=== PATIENT | female | born 1975 | race Caucasian/White ===

== ENCOUNTER 2018-08-18 15:55 | Inpatient (IN) | payer BC ==
[2018-08-18] MEDS ORDERED: Sodium Chloride 0.9% 10 ML Syringe FLUSH PRN (16:14)
[2018-08-18] MEDS ORDERED: EPINEPHrine 1:10,000 1 MG/10 ML Syringe IVPUSH PRN (16:20)
[2018-08-18] MEDS ORDERED: Nitroglycerin 0.4 MG Tab.SL SL PRN (16:20)
[2018-08-18] MEDS ORDERED: Lidocaine 2% 100 MG/5 ML Syringe IVPUSH PRN (16:20)
[2018-08-18] MEDS ORDERED: Atropine 0.1 MG/ML 10 ML Syringe IVPUSH PRN (16:20)
[2018-08-18] MEDS: Sodium Chloride 0.9% 1,000 ML IV SCH (17:05)
[2018-08-18] MEDS ORDERED: Albuterol 0.083% 2.5 MG/3 ML Neb Soln INH PRN (17:17)
[2018-08-18] MEDS: Ticagrelor 90 MG Tab PO SCH (21:11)
[2018-08-19] MEDS: Sodium Chloride 0.9% 1,000 ML IV SCH ×3 (03:16→22:59)
[2018-08-19] MEDS ORDERED: Levothyroxine 25 MCG Tab PO SCH (07:30)
[2018-08-19] MEDS: Levothyroxine 112 MCG Tab PO SCH (07:58)
[2018-08-19 08:00] LABS: CHLORIDE,CL 111 mmol/L (98-115)
[2018-08-19 08:05] LABS: ANION GAP 14.3 mmol/L (5-15); SODIUM,NA 145 mmol/L (136-145)
[2018-08-19] MEDS ORDERED: LEVOTHYROXINE 137 MCG PO SCH (09:00)
[2018-08-19] MEDS ORDERED: metFORMIN 500 MG Tab PO SCH (09:00)
[2018-08-19] MEDS: Aspirin 325 MG Tab.EC PO SCH (09:58)
[2018-08-19] MEDS: Ticagrelor 90 MG Tab PO SCH ×2 (09:58→21:13)
[2018-08-19] MEDS: Magnesium Oxide 500 MG Tab PO SCH (09:59)
[2018-08-19] MEDS: Liraglutide (rDNA Origin) 0.6 MG/0.1 ML 3 ML Pen SUBCUT SCH (10:00)
[2018-08-19] MEDS: Venlafaxine 37.5 MG Cap.ER PO SCH (10:37)
[2018-08-19] MEDS: Venlafaxine 150 MG Cap.ER PO SCH (10:37)
--- NOTE | 2018-08-19 11:56 | PCM.PN ---
- General Info Date of Service: 08/19/18 Subjective Update: Ms. Kirkpatrick reports some improvement today in generalized weakness, lightheadedness, and fatigue. Endorses that these symptoms have been progressive over the past few months. She does not check home BPs and has not made any adjustments to her antihypertensive medications over this course. She has a significant cardiac history with hx CABG and stents without cardiology follow-up since 2016. She also endorses an unintentional weight loss of 25 pounds over the past 18months and has been having intermittent baseline, mildly worsened from her baseline. She continues to smoke 1/2-3/4ppd of cigarettes. Has been able to successfully quit in the past, and is currently unsure if she wants to quit entirely due to increased stress in her life. Main stressors are having started a new job and having an "up and down" relationship with her two children. She denies any new symptoms, including notably denying any vertigo, vision changes, chest pain, palpitations, shortness of breath, or abdominal pain. - Patient Data Vitals - Most Recent: Last Vital Signs Temp 36.2 C 08/19/18 11:00 Pulse 97 08/19/18 11:00 Resp 16 08/19/18 11:00 BP 88/50 L 08/19/18 11:00 Pulse Ox 98 08/19/18 11:00 Weight - Most Recent: 68.765 kg I&O - Last 24 Hours: Intake & Output 08/18/18 08/19/18 08/19/18 22:59 06:59 14:59 Intake Total 663 925 Output Total 900 600 Balance -237 325 Lab Results Last 24 Hours: Laboratory Results - last 24 hr 08/18/18 08/18/18 08/18/18 Range/Units 16:40 16:40 16:40 WBC (5.00-10.00) 10^3/uL RBC (3.80-5.50) 10^6/uL Hgb (12.0-16.0) g/dL Hct (37.0-47.0) % MCV (82.0-92.0) fL MCH (27.0-31.0) pg MCHC (32.0-36.0) g/dL RDW (11.5-14.5) % Plt Count (150-400) 10^3/uL MPV (7.4-10.4) fL Immature Gran % (Auto) (0.0-5.0) % Neut % (Auto) (50.0-70.0) % Lymph % (Auto) (20.0-40.0) % [place] % (Auto) (2.0-8.0) % Eos % (Auto) (1.0-3.0) % Baso % (Auto) (0.0-1.0) % Immature Gran # (Auto) (0.00-0.50) 10^3/uL Neut # (Auto) (2.50-7.00) 10^3/uL Lymph # (Auto) (1.00-4.00) 10^3/uL [place] # (Auto) (0.10-0.80) 10^3/uL Eos # (Auto) (0.10-0.30) 10^3/uL Baso # (Auto) (0.00-0.10) 10^3/uL ESR 20 (0-20) mm/hr Sodium (136-145) mmol/L Potassium (3.3-5.3) mmol/L Chloride (98-115) mmol/L Carbon Dioxide (21.0-32.0) mmol/L Anion Gap (5-15) mmol/L BUN (6-25) mg/dL Creatinine (0.51-1.17) mg/dL Est Cr Clr Drug Dosing mL/min Estimated GFR (MDRD) mL/min Glucose (75 - 99) mg/dL POC Glucose (74-106) mg/dl Lactic Acid (0.4-2.0) mmol/L Calcium (8.7-10.3) mg/dL Magnesium (1.8-2.4) mg/dL Total Bilirubin (0.2-1.0) mg/dL AST (15-37) U/L ALT (12-78) U/L Alkaline Phosphatase (46-116) IU/L Troponin I 0.05 (0.00-0.070) ng/mL C-Reactive Protein 0.2 (0.0-0.9) mg/dL Total Protein (6.4-8.2) g/dL Albumin (3.00-4.80) g/dL TSH, Ultra Sensitive 0.080 L (0.340-4.820) uIU/mL 08/18/18 08/18/18 08/19/18 Range/Units 17:32 20:11 06:38 WBC (5.00-10.00) 10^3/uL RBC (3.80-5.50) 10^6/uL Hgb (12.0-16.0) g/dL Hct (37.0-47.0) % MCV (82.0-92.0) fL MCH (27.0-31.0) pg MCHC (32.0-36.0) g/dL RDW (11.5-14.5) % Plt Count (150-400) 10^3/uL MPV (7.4-10.4) fL Immature Gran % (Auto) (0.0-5.0) % Neut % (Auto) (50.0-70.0) % Lymph % (Auto) (20.0-40.0) % [place] % (Auto) (2.0-8.0) % Eos % (Auto) (1.0-3.0) % Baso % (Auto) (0.0-1.0) % Immature Gran # (Auto) (0.00-0.50) 10^3/uL Neut # (Auto) (2.50-7.00) 10^3/uL Lymph # (Auto) (1.00-4.00) 10^3/uL [place] # (Auto) (0.10-0.80) 10^3/uL Eos # (Auto) (0.10-0.30) 10^3/uL Baso # (Auto) (0.00-0.10) 10^3/uL ESR (0-20) mm/hr Sodium (136-145) mmol/L Potassium (3.3-5.3) mmol/L Chloride (98-115) mmol/L Carbon Dioxide (21.0-32.0) mmol/L Anion Gap (5-15) mmol/L BUN (6-25) mg/dL Creatinine (0.51-1.17) mg/dL Est Cr Clr Drug Dosing mL/min Estimated GFR (MDRD) mL/min Glucose (75 - 99) mg/dL POC Glucose 154 H 163 H 121 H (74-106) mg/dl Lactic Acid (0.4-2.0) mmol/L Calcium (8.7-10.3) mg/dL Magnesium (1.8-2.4) mg/dL Total Bilirubin (0.2-1.0) mg/dL AST (15-37) U/L ALT (12-78) U/L Alkaline Phosphatase (46-116) IU/L Troponin I (0.00-0.070) ng/mL C-Reactive Protein (0.0-0.9) mg/dL Total Protein (6.4-8.2) g/dL Albumin (3.00-4.80) g/dL TSH, Ultra Sensitive (0.340-4.820) uIU/mL 08/19/18 08/19/18 08/19/18 Range/Units 07:20 07:20 07:20 WBC 7.41 (5.00-10.00) 10^3/uL RBC 4.09 (3.80-5.50) 10^6/uL Hgb 12.1 (12.0-16.0) g/dL Hct 34.8 L (37.0-47.0) % MCV 85.1 D (82.0-92.0) fL MCH 29.6 (27.0-31.0) pg MCHC 34.8 (32.0-36.0) g/dL RDW 14.6 H (11.5-14.5) % Plt Count 308 (150-400) 10^3/uL MPV 9.4 (7.4-10.4) fL Immature Gran % (Auto) 0.3 (0.0-5.0) % Neut % (Auto) 44.0 L (50.0-70.0) % Lymph % (Auto) 41.8 H (20.0-40.0) % [place] % (Auto) 9.2 H (2.0-8.0) % Eos % (Auto) 4.2 H (1.0-3.0) % Baso % (Auto) 0.5 (0.0-1.0) % Immature Gran # (Auto) 0.02 (0.00-0.50) 10^3/uL Neut # (Auto) 3.26 (2.50-7.00) 10^3/uL Lymph # (Auto) 3.10 (1.00-4.00) 10^3/uL [place] # (Auto) 0.68 (0.10-0.80) 10^3/uL Eos # (Auto) 0.31 H (0.10-0.30) 10^3/uL Baso # (Auto) 0.04 (0.00-0.10) 10^3/uL ESR (0-20) mm/hr Sodium 145 (136-145) mmol/L Potassium 3.6 (3.3-5.3) mmol/L Chloride 111 (98-115) mmol/L Carbon Dioxide 23.3 (21.0-32.0) mmol/L Anion Gap 14.3 (5-15) mmol/L BUN 7 (6-25) mg/dL Creatinine 0.66 (0.51-1.17) mg/dL Est Cr Clr Drug Dosing 92.95 mL/min Estimated GFR (MDRD) > 60 mL/min Glucose 119 H (75 - 99) mg/dL POC Glucose (74-106) mg/dl Lactic Acid 1.0 (0.4-2.0) mmol/L Calcium 8.7 (8.7-10.3) mg/dL Magnesium 1.4 L (1.8-2.4) mg/dL Total Bilirubin 0.3 (0.2-1.0) mg/dL AST 14 L (15-37) U/L ALT 13 (12-78) U/L Alkaline Phosphatase 71 (46-116) IU/L Troponin I (0.00-0.070) ng/mL C-Reactive Protein (0.0-0.9) mg/dL Total Protein 6.1 L (6.4-8.2) g/dL Albumin 2.99 L (3.00-4.80) g/dL TSH, Ultra Sensitive (0.340-4.820) uIU/mL Med Orders - Current: Current Medications Albuterol (Proventil Neb Soln) 2.5 mg INH QID PRN PRN Reason: Dyspnea Aspirin (Ecotrin) 325 mg PO DAILY [facility] Last Admin: 08/19/18 09:58 Dose: 325 mg Atropine Sulfate (Atropine 0.1 Mg/Ml) 0 mg IVPUSH ASDIRECTED PRN PRN Reason: Heart Epinephrine HCl (Epinephrine 1:10,000) 1 mg IVPUSH ASDIRECTED PRN PRN Reason: Heart Sodium Chloride (Normal Saline) 1,000 mls @ 100 mls/hr IV ASDIRECTED [facility] Last Admin: 08/19/18 03:16 Dose: 100 mls/hr Levothyroxine Sodium (Levothyroxine) 112 mcg PO ACBREAKFAST [facility] Last Admin: 08/19/18 07:58 Dose: 112 mcg Lidocaine HCl (Xylocaine 2%) 0 mg IVPUSH ASDIRECTED PRN PRN Reason: Heart Liraglutide (Victoza) 1.2 mg SUBCUT DAILY [facility] Last Admin: 08/19/18 10:00 Dose: 1.2 mg Magnesium Oxide (Magnesium Oxide) 500 mg PO DAILY [facility] Last Admin: 08/19/18 09:59 Dose: 500 mg Nitroglycerin (Nitrostat) 0.4 mg SL ASDIRECTED PRN PRN Reason: Heart Non-Formulary Medication (Budesonide [Entocort Ec]) 3 - 9 mg PO DAILY PRN PRN Reason: Diarrhea Sodium Chloride (Saline Flush) 10 ml FLUSH Q8HR PRN PRN Reason: keep vein open Ticagrelor (Brilinta) 90 mg PO BID [facility] Venlafaxine HCl (Effexor Xr) 37.5 mg PO DAILY [facility] Last Admin: 08/19/18 10:37 Dose: 37.5 mg Venlafaxine HCl (Effexor Xr) 150 mg PO DAILY [facility] Last Admin: 08/19/18 10:37 Dose: 150 mg Discontinued Medications Levothyroxine Sodium (Levothyroxine) 25 mcg PO ACBREAKFAST [facility] Metformin HCl (Glucophage) 2,000 mg PO DAILY [facility] Non-Formulary Medication (Levothyroxine) 137 mcg PO DAILY [facility] Ticagrelor (Brilinta) 90 mg PO BID [facility] Last Admin: 08/19/18 09:58 Dose: 90 mg - Exam Physical Findings Comments:: GENERAL: Adult white female appearing older than stated age sitting in hospital bed in no acute distress. HEENT: Normocephalic, atraumatic. Conjunctiva clear. Nares patent without discharge. Mucous membranes moist, posterior pharynx unremarkable. NECK: Supple, no masses. CV: Regular rate and rhythm, no murmurs, rubs, or gallops. 2+ radial pulses. PULMONARY: Normal effort, clear to auscultation bilaterally, no wheezes, rales, or rhonchi. ABDOMEN: Positive bowel sounds, soft, nontender, nondistended. EXTREMITIES: No edema, cyanosis, or clubbing. MUSCULOSKELETAL: Moves all extremities well. NEUROLOGICAL: No obvious deficits. DERMATOLOGIC: No rashes or suspicious lesions in exposed areas. PSYCHIATRIC: Alert, interactive, mildly anxious and guarded affect. - Problem List Review Problem List Initiated/Reviewed/Updated: Yes - My Orders Last 24 Hours: My Active Orders 08/18/18 16:20 Atropine [Atropine 0.1 MG/ML] 0 mg IVPUSH ASDIRECTED PRN EPINEPHrine [EPINEPHrine 1:10,000] 1 mg IVPUSH ASDIRECTED PRN Lidocaine 2% [Xylocaine 2%] 0 mg IVPUSH ASDIRECTED PRN Nitroglycerin [Nitrostat] 0.4 mg SL ASDIRECTED PRN 08/18/18 23:00 Vital Signs [RC] Q4H 08/18/18 23:30 Weight Daily [Height and Weight] [RC] 0700 08/19/18 11:46 DRUG SCREEN, URINE [URCHEM] Routine UA RFX MELANIA AND CULT IF INDIC [URIN] Routine 08/19/18 11:48 Budesonide [Entocort EC] 3 - 9 mg PO DAILY PRN 08/19/18 21:00 Ticagrelor [Brilinta] 90 mg PO BID atorvaSTATin [Lipitor] 40 mg PO BEDTIME 08/20/18 05:11 BASIC METABOLIC PANEL,BMP [CHEM] AM CBC WITH AUTO DIFF [HEME] AM MAGNESIUM [CHEM] AM 08/20/18 18:00 Magnesium Oxide 500 mg PO DAILY ONE - Plan Plan:: HPI summary: 43yoF with history notable for CAD s/p CABG, angioplasty, and stenting in the past, HTN, and DMT2 who presented to [facility] on 08/18/18 complaining of progressive weakness, lightheadedness, and fatigue. She also notably has had a weight loss of 25# over the past 18mos. BP was 75/48 and had symptomatic orthostasis for which she was admitted for close monitoring, further work-up, and medication adjustments. Hospital course: Labs notable for TSH 0.08 and magnesium 1.4 with otherwise unremarkable CBC, CMP , lactic acid, and troponin. Noted improvement in BPs with IVF and holding of antihypertensives, though first time holding was on the morning of the second hospitalization day as she took on the day of admission. No evidence of infection or other abnormalities. Etiology likely iatrogenic hypotension and hyperthyroidism and too tight management of DMT2. Hospitalization problems: # Hypotension # Iatrogenic hyperthyroidism: TSH 0.08. Prior levothyroxine dose 137mcg. # Recent weight loss # Hypoalbuminemia # Hypomagnesemia - Hold amlodipine, lisinopril, and isosorbide - Restart metoprolol tartrate at half dose of 25mg BID - Decrease levothyroxine to 112mcg - Increase magnesium to 500mg twice daily - Obtain UA and urine toxicology - Recheck CBC, BMP, and Mg in AM # DMT2: A1c 6. - Continue holding metformin while inpatient - Decrease liraglutide to 0.6mg # Tobacco dependence: Precontemplative stage of change. Stressed critical importance of cessation. She declines need for nicotine replacement during hospitalization. Chronic, stable conditions: # CAD: No evidence of acute ischemia. Continue DAPT with Brillinta and ASA 325mg as well as nitro prn chest pain. Recommend upcoming follow-up with cardiology, given last appointment was in 2015. # HLD: Last lipid panel 09/2017. Continue high dose statin. # Hx Budd-Chiari syndrome: S/p venoplasty. No recurrent concerns. # Hx collagenous colitis: Prior work-up at [facility], per patient report. Continue budesonide prn. # Neuropathic pain: Stable. Holding gabapentin in setting of hypotension and dizziness. # TIARRA and major recurrent depression: Active. Continue venlafaxine. Recommend referral to behavioral health counseling and consideration of medication changes in the future. # Scalp psoriasis: Continue flucinonide three times weekly. Hospitalization details: # FEN: NS at 100cc/hr. Electrolytes normal. Heart healthy diet. # PPX: Ambulate often for DVT prophylaxis; she is already on DAPT at baseline. # Code status: FULL. # Emergency contact: Significant other, who was updated at bedside on rounds. # Disposition: Continue on inpatient status. Anticipate discharge to home as early as tomorrow pending ongoing clinical improvement.
[2018-08-19] MEDS ORDERED: atorvaSTATin 40 MG Tab PO SCH (21:00)
[2018-08-19] MEDS: Metoprolol Tartrate 25 MG Tab PO SCH (22:11)
[2018-08-20] MEDS: Levothyroxine 112 MCG Tab PO SCH (06:32)
[2018-08-20 07:29] LABS: ANION GAP 13.7 mmol/L (5-15); CHLORIDE,CL 104 mmol/L (98-115); SODIUM,NA 141 mmol/L (136-145)
[2018-08-20] MEDS: Metoprolol Tartrate 25 MG Tab PO SCH (08:58)
[2018-08-20] MEDS: Magnesium Oxide 500 MG Tab PO SCH (08:58)
[2018-08-20] MEDS: Ticagrelor 90 MG Tab PO SCH (08:58)
[2018-08-20] MEDS: Aspirin 325 MG Tab.EC PO SCH (08:58)
[2018-08-20] MEDS: Liraglutide (rDNA Origin) 0.6 MG/0.1 ML 3 ML Pen SUBCUT SCH (08:59)
[2018-08-20] MEDS: Venlafaxine 37.5 MG Cap.ER PO SCH (08:59)
[2018-08-20] MEDS: Venlafaxine 150 MG Cap.ER PO SCH (08:59)
[2018-08-20 09:01] VITALS: BP 110/70
--- NOTE | 2018-08-20 11:57 | PCM.DCSUM1 ---
Discharge Summary - Hospital Course Free Text/Narrative:: Date of admission: 08/18/18 Date of discharge: 08/20/18 Admission diagnoses: # Essential hypertension with current hypotension, symptomatic # Weight loss # CAD # Hx Budd-Chiari syndrome # Hx collagenous colitis # DMT2 # Hypothyroidism # HLD # Neuropathic pain # TIARRA # Major recurrent depression # Tobacco dependence # Scalp psoriasis Discharge diagnoses: # Essential hypertension with current resolving hypotension # Weight loss # Hypothyroidism with current iatrogenic hyperthyroidism # DMT2 # Hypoalbuminemia # Hypomagnesemia # CAD # Hx Budd-Chiari syndrome # Hx collagenous colitis # HLD # Neuropathic pain # TIARRA # Major recurrent depression # Tobacco dependence # Scalp psoriasis Consultations: None Procedures: None Hospital course: 43yoF with history notable for CAD s/p CABG, angioplasty, and stenting in the past, HTN, DMT2, and hypothyroidism who presented to [facility] on 08/18/18 complaining of progressive weakness, lightheadedness, and fatigue. She also notably has had a weight loss of 25# over the past 18mos. BP was 75/48 and had symptomatic orthostasis for which she was admitted for close monitoring, further work-up, and medication adjustments. Labs notable for TSH 0.08, magnesium 1.4, and A1c 6% with otherwise unremarkable CBC, CMP, lactic acid, troponin., UA, and urine toxicology. EKG and telemetry unremarkable. Etiology of symptoms and hypotension likely iatrogenic hypotension and hyperthyroidism and too tight management of DMT2. Noted improvement in symptoms and BPs with IVF and holding of antihypertensives , isosorbide, and gabapentin. Metformin was also held, liraglutide dose reduced , and levothyroxine dose reduced. She was continued on other medications for chronic medical conditions. No evidence of other abnormalities arose during her stay and due to excellent clinical improvement throughout hospitalization, was deemed ready for discharge back to home. See following detailed problem based assessment and plan: # Essential hypertension with current resolving hypotension: Was on home metoprolol tartrate 50mg BID, amlodipine 5mg, and lisinopril 10mg. Improvement in hypotension with holding of medications and IVF. Restarted metoprolol tartrate 25mg BID with ongoing improved BPs from admission. # Weight loss: Likely related to iatrogenic hyperthyroidism, see below. Continue close monitoring. # Hypothyroidism with current iatrogenic hyperthyroidism: TSH 0.08. Prior levothyroxine dose 137mcg, which was reduced to 112mcg. # DMT2: A1c 6. Metformin held while inpatient. Was previously taking metformin 2000mg once daily, which was changed to 1000mg BID at discharge. Liraglutide was reduced in dose to 0.6mg. # Hypoalbuminemia: Mildly low at 2.99. # Hypomagnesemia: Mildly low at 1.4. Was on magnesium chloride 500mg once daily , which was increased to twice daily. # CAD: No evidence of acute ischemia. Continue DAPT with Brillinta and ASA 325mg as well as nitro prn chest pain. Recommend upcoming follow-up with cardiology, given last appointment was in 2015. # Hx Budd-Chiari syndrome: S/p venoplasty. No recurrent concerns. # Hx collagenous colitis: Prior work-up at [facility], per patient report. Continue budesonide prn. # HLD: Last lipid panel 09/2017. Continue high dose statin. # Neuropathic pain: Stable. Holding gabapentin in setting of hypotension and dizziness. # TIARRA / Major recurrent depression: Active. Continue venlafaxine. Recommend referral to behavioral health counseling and consideration of medication changes in the future. # Tobacco dependence: Precontemplative stage of change. Stressed critical importance of cessation. She declines need for nicotine replacement during hospitalization. # Scalp psoriasis: Continue flucinonide three times weekly. Discharge medication changes: - Discontinue amlodipine - Discontinue lisinopril - Decrease metoprolol tartrate to 25mg BID (from 50mg BID) - Decrease levothyroxine to 112mcg (from 137mcg) - Decrease liraglutide to 0.6mg daily (from 1.2mg daily) - Change metformin 1000mg BID (from 2000mg daily) - Increase magnesium to 500mg twice daily - Hold isosorbide, with plan to reinitiate at follow-up pending clinical status Other follow-up items: - Follow-up with provider at [facility] next week, with follow-up magnesium level - Schedule follow-up with cardiology - Highly consider referral to behavioral health counseling - Highly recommend tobacco cessation - Monitor weight - Monitor BGs to reassess need for ongoing use of liraglutide - Consider change in psychotropic medication regimen based on ongoing control of mood disorders - Next TSH in 6 weeks - Next A1c in 3 months - Discharge Data Discharge Date: 08/20/18 Discharge Disposition: Home, Self-Care 01 Condition: Good - Patient Instructions Diet: Heart Healthy Diet Activity: As Tolerated Driving: May Drive Today Showering/Bathing: May Shower Other/Special Instructions: Return for worsening symptoms, chest pain, or other concerns. - Discharge Plan *PRESCRIPTION DRUG MONITORING PROGRAM REVIEWED*: Yes *COPY OF PRESCRIPTION DRUG MONITORING REPORT IN PATIENT LUI: Yes Prescriptions/Med Rec: Levothyroxine 112 mcg PO ACBREAKFAST #60 tablet Metoprolol Tartrate [Lopressor] 25 mg PO BID #60 tablet Nitroglycerin [Nitrostat] 0.4 mg SL ASDIRECTED PRN #30 tab.subl PRN Reason: Chest Pain Home Medications: Home Meds Aspirin 325 mg PO DAILY 03/09/14 [History] Budesonide [Entocort EC] 6 mg PO DAILY PRN 04/02/18 [History] Rosuvastatin Calcium [Crestor] 40 mg PO DAILY 04/02/18 [History] Ticagrelor [Brilinta] 90 mg PO BID 04/02/18 [History] Venlafaxine HCl [Venlafaxine ER] 37.5 mg PO DAILY 04/02/18 [History] Venlafaxine HCl [Venlafaxine ER] 150 mg PO DAILY 04/02/18 [History] Albuterol [Proventil Neb Soln] 2.5 mg INH QID PRN 08/18/18 [History] Fluocinonide/Emollient [Lidex-E 0.05% Crm] 1 applic TOP ASDIRECTED 08/18/18 [ History] Gabapentin [Neurontin] 300 mg PO BID 08/19/18 [History] Levothyroxine 112 mcg PO ACBREAKFAST #60 tablet 08/20/18 [Rx] Liraglutide [Victoza] 0.6 mg SQ DAILY #3 08/20/18 [Rx] Magnesium Oxide 500 mg PO DAILY tablet 08/20/18 [Rx] Metoprolol Tartrate [Lopressor] 25 mg PO BID #60 tablet 08/20/18 [Rx] Nitroglycerin [Nitrostat] 0.4 mg SL ASDIRECTED PRN #30 tab.subl 08/20/18 [Rx] metFORMIN HCl [Metformin HCl ER] 1,000 mg PO BID #120 08/20/18 [Rx] Patient Handouts: Steps to Quit Smoking Referrals: Long,Shavon B, [employer] [Primary Care Provider] - (or other [facility] provider next week; call Wednesday to make appointment) - Discharge Summary/Plan Comment DC Time >30 min.: Yes - General Info Subjective Update: Ms. Kirkpatrick reports ongoing improvement today in generalized weakness, lightheadedness, and fatigue. Tolerating diet and ambulation well. Voiding and having soft BMs without difficulty. She denies any new symptoms, including notably denying any vertigo, vision changes, chest pain, palpitations, shortness of breath, or abdominal pain. - Patient Data Vitals - Most Recent: Last Vital Signs Temp 36.5 C 08/20/18 06:46 Pulse 95 08/20/18 08:58 Resp 20 08/20/18 06:46 BP 110/70 08/20/18 08:58 Pulse Ox 96 08/20/18 06:46 Weight - Most Recent: 70.08 kg I&O - Last 24 hours: Intake & Output 08/19/18 08/20/18 08/20/18 22:59 06:59 14:59 Intake Total 1120 1340 Output Total 500 1250 Balance 620 90 Lab Results - Last 24 hrs: Laboratory Results - last 24 hr 08/19/18 08/19/18 08/19/18 Range/Units 17:33 17:33 21:12 WBC (5.00-10.00) 10^3/uL RBC (3.80-5.50) 10^6/uL Hgb (12.0-16.0) g/dL Hct (37.0-47.0) % MCV (82.0-92.0) fL MCH (27.0-31.0) pg MCHC (32.0-36.0) g/dL RDW (11.5-14.5) % Plt Count (150-400) 10^3/uL MPV (7.4-10.4) fL Immature Gran % (Auto) (0.0-5.0) % Neut % (Auto) (50.0-70.0) % Lymph % (Auto) (20.0-40.0) % Dade % (Auto) (2.0-8.0) % Eos % (Auto) (1.0-3.0) % Baso % (Auto) (0.0-1.0) % Immature Gran # (Auto) (0.00-0.50) 10^3/uL Neut # (Auto) (2.50-7.00) 10^3/uL Lymph # (Auto) (1.00-4.00) 10^3/uL Dade # (Auto) (0.10-0.80) 10^3/uL Eos # (Auto) (0.10-0.30) 10^3/uL Baso # (Auto) (0.00-0.10) 10^3/uL WBC Morphology Comment Sodium (136-145) mmol/L Potassium (3.3-5.3) mmol/L Chloride (98-115) mmol/L Carbon Dioxide (21.0-32.0) mmol/L Anion Gap (5-15) mmol/L BUN (6-25) mg/dL Creatinine (0.51-1.17) mg/dL Est Cr Clr Drug Dosing mL/min Estimated GFR (MDRD) mL/min Glucose (75 - 99) mg/dL POC Glucose 110 H (74-106) mg/dl Calcium (8.7-10.3) mg/dL Magnesium (1.8-2.4) mg/dL Specimen Type Urine void Urine Color Yellow (YELLOW) Urine Appearance Slightly cloudy H (CLEAR) Urine pH 5.5 (5.0-9.0) Ur Specific [place] <= 1.005 (1.005-1.030) Urine Protein Negative (NEGATIVE) mg/dL Urine Glucose (UA) Negative (NEGATIVE) mg/dL Urine Ketones Negative (NEGATIVE) mg/dL Urine Occult Blood Negative (NEGATIVE) Urine Nitrite Negative (NEGATIVE) Urine Bilirubin Negative (NEGATIVE) Urine Urobilinogen 0.2 (0.2-1.0) E.U./dL Ur Leukocyte Esterase Negative (NEGATIVE) Urine Opiates Screen Negative (NEGATIVE) Ur Oxycodone Screen Negative (NEGATIVE) Urine Methadone Screen Negative (NEGATIVE) Ur Propoxyphene Screen Negative (NEGATIVE) Ur Barbiturates Screen Negative (NEGATIVE) Ur Tricyclics Screen Negative (NEGATIVE) Ur Phencyclidine Scrn Negative (NEGATIVE) Ur Amphetamine Screen Negative (NEGATIVE) U Methamphetamines Scrn Negative (NEGATIVE) U Benzodiazepines Scrn Negative (NEGATIVE) U Cocaine Metab Screen Negative (NEGATIVE) U Marijuana (THC) Screen Negative (NEGATIVE) 08/20/18 08/20/1819 Range/Units 06:20 06:46 06:46 WBC 6.66 (5.00-10.00) 10^3/uL RBC 4.22 (3.80-5.50) 10^6/uL Hgb 12.5 (12.0-16.0) g/dL Hct 35.8 L (37.0-47.0) % MCV 84.8 (82.0-92.0) fL MCH 29.6 (27.0-31.0) pg MCHC 34.9 (32.0-36.0) g/dL RDW 14.4 (11.5-14.5) % Plt Count 303 (150-400) 10^3/uL MPV 9.3 (7.4-10.4) fL Immature Gran % (Auto) 0.3 (0.0-5.0) % Neut % (Auto) 44.1 L (50.0-70.0) % Lymph % (Auto) 41.9 H (20.0-40.0) % Dade % (Auto) 8.6 H (2.0-8.0) % Eos % (Auto) 4.5 H (1.0-3.0) % Baso % (Auto) 0.6 (0.0-1.0) % Immature Gran # (Auto) 0.02 (0.00-0.50) 10^3/uL Neut # (Auto) 2.94 (2.50-7.00) 10^3/uL Lymph # (Auto) 2.79 (1.00-4.00) 10^3/uL Dade # (Auto) 0.57 (0.10-0.80) 10^3/uL Eos # (Auto) 0.30 (0.10-0.30) 10^3/uL Baso # (Auto) 0.04 (0.00-0.10) 10^3/uL WBC Morphology Comment See note Sodium 141 (136-145) mmol/L Potassium 3.5 (3.3-5.3) mmol/L Chloride 104 (98-115) mmol/L Carbon Dioxide 26.8 (21.0-32.0) mmol/L Anion Gap 13.7 (5-15) mmol/L BUN 4 L (6-25) mg/dL Creatinine 0.62 (0.51-1.17) mg/dL Est Cr Clr Drug Dosing 98.95 mL/min Estimated GFR (MDRD) > 60 mL/min Glucose 86 (75 - 99) mg/dL POC Glucose 92 (74-106) mg/dl Calcium 8.5 L (8.7-10.3) mg/dL Magnesium 1.1 L (1.8-2.4) mg/dL Specimen Type Urine Color (YELLOW) Urine Appearance (CLEAR) Urine pH (5.0-9.0) Ur Specific [place] (1.005-1.030) Urine Protein (NEGATIVE) mg/dL Urine Glucose (UA) (NEGATIVE) mg/dL Urine Ketones (NEGATIVE) mg/dL Urine Occult Blood (NEGATIVE) Urine Nitrite (NEGATIVE) Urine Bilirubin (NEGATIVE) Urine Urobilinogen (0.2-1.0) E.U./dL Ur Leukocyte Esterase (NEGATIVE) Urine Opiates Screen (NEGATIVE) Ur Oxycodone Screen (NEGATIVE) Urine Methadone Screen (NEGATIVE) Ur Propoxyphene Screen (NEGATIVE) Ur Barbiturates Screen (NEGATIVE) Ur Tricyclics Screen (NEGATIVE) Ur Phencyclidine Scrn (NEGATIVE) Ur Amphetamine Screen (NEGATIVE) U Methamphetamines Scrn (NEGATIVE) U Benzodiazepines Scrn (NEGATIVE) U Cocaine Metab Screen (NEGATIVE) U Marijuana (THC) Screen (NEGATIVE) Med Orders - Current: Current Medications Albuterol (Proventil Neb Soln) 2.5 mg INH QID PRN PRN Reason: Dyspnea Aspirin (Ecotrin) 325 mg PO DAILY [facility] Last Admin: 08/20/18 08:58 Dose: 325 mg Atorvastatin Calcium (Lipitor) 40 mg PO BEDTIME [facility] Last Admin: 08/19/18 21:13 Dose: 40 mg Atropine Sulfate (Atropine 0.1 Mg/Ml) 0 mg IVPUSH ASDIRECTED PRN PRN Reason: Heart Epinephrine HCl (Epinephrine 1:10,000) 1 mg IVPUSH ASDIRECTED PRN PRN Reason: Heart Sodium Chloride (Normal Saline) 1,000 mls @ 100 mls/hr IV ASDIRECTED [facility] Last Admin: 08/19/18 22:59 Dose: 100 mls/hr Levothyroxine Sodium (Levothyroxine) 112 mcg PO ACBREAKFAST [facility] Last Admin: 03/23/19 06:32 Dose: 112 mcg Lidocaine HCl (Xylocaine 2%) 0 mg IVPUSH ASDIRECTED PRN PRN Reason: Heart Liraglutide (Victoza) 1.2 mg SUBCUT DAILY [facility] Last Admin: 08/20/18 08:59 Dose: 1.2 mg Magnesium Oxide (Magnesium Oxide) 500 mg PO DAILY [facility] Last Admin: 08/20/18 08:58 Dose: 500 mg Magnesium Oxide (Magnesium Oxide) 500 mg PO DAILY ONE Stop: 08/20/18 18:01 Metoprolol Tartrate (Lopressor) 25 mg PO BID [facility] Last Admin: 08/20/18 08:58 Dose: 25 mg Nitroglycerin (Nitrostat) 0.4 mg SL ASDIRECTED PRN PRN Reason: Heart Budesonide Ec 3mg (Capsule) 2 each PO DAILY PRN PRN Reason: Diarrhea Sodium Chloride (Saline Flush) 10 ml FLUSH Q8HR PRN PRN Reason: keep vein open Ticagrelor (Brilinta) 90 mg PO BID [facility] Last Admin: 08/20/18 08:58 Dose: 90 mg Venlafaxine HCl (Effexor Xr) 37.5 mg PO DAILY [facility] Last Admin: 08/20/18 08:59 Dose: 37.5 mg Venlafaxine HCl (Effexor Xr) 150 mg PO DAILY [facility] Last Admin: 08/20/18 08:59 Dose: 150 mg Discontinued Medications Levothyroxine Sodium (Levothyroxine) 25 mcg PO ACBREAKFAST [facility] Metformin HCl (Glucophage) 2,000 mg PO DAILY [facility] Non-Formulary Medication (Levothyroxine) 137 mcg PO DAILY [facility] Ticagrelor (Brilinta) 90 mg PO BID [facility] Last Admin: 08/19/18 09:58 Dose: 90 mg - Exam Physical Findings Comments:: GENERAL: Adult white female appearing older than stated age sitting in hospital bed in no acute distress. HEENT: Normocephalic, atraumatic. Conjunctiva clear. Nares patent without discharge. Mucous membranes moist, posterior pharynx unremarkable. NECK: Supple, no masses. CV: Regular rate and rhythm, no murmurs, rubs, or gallops. 2+ radial pulses. PULMONARY: Normal effort, clear to auscultation bilaterally, no wheezes, rales, or rhonchi. ABDOMEN: Positive bowel sounds, soft, nontender, nondistended. EXTREMITIES: No edema, cyanosis, or clubbing. MUSCULOSKELETAL: Moves all extremities well. NEUROLOGICAL: No obvious deficits. DERMATOLOGIC: No rashes or suspicious lesions in exposed areas. PSYCHIATRIC: Alert, interactive,appropriate affect.
[2018-08-20] MEDS ORDERED: Magnesium Oxide 500 MG Tab PO ONE (18:00)
== END 2018-08-20 11:40 | disposition home or self-care (01) | DRG 207 ==
LOC: KA.MS 16:09
PROVIDERS: ADMIT Physician Assistant Medical; ATTEND Family Medicine
DX: I95.89 Other hypotension (principal); E05.80 Other thyrotoxicosis without thyrotoxic crisis or storm; I25.10 Atherosclerotic heart disease of native coronary artery without angina pectoris; I10 Essential (primary) hypertension; E03.9 Hypothyroidism, unspecified; F32.9 Major depressive disorder, single episode, unspecified; E78.5 Hyperlipidemia, unspecified; E66.9 Obesity, unspecified; F17.210 Nicotine dependence, cigarettes, uncomplicated; E88.09 Other disorders of plasma-protein metabolism, not elsewhere classified; E11.42 Type 2 diabetes mellitus with diabetic polyneuropathy; E83.42 Hypomagnesemia; L40.8 Other psoriasis; R63.4 Abnormal weight loss; I82.0 Budd-Chiari syndrome; F41.1 Generalized anxiety disorder; Z90.49 Acquired absence of other specified parts of digestive tract; Z90.710 Acquired absence of both cervix and uterus; Z95.1 Presence of aortocoronary bypass graft; Z95.5 Presence of coronary angioplasty implant and graft; Z88.1 Allergy status to other antibiotic agents; Z88.8 Allergy status to other drugs, medicaments and biological substances; Z68.25 Body mass index [BMI] 25.0-25.9, adult; I25.2 Old myocardial infarction
CPT/HCPCS: 36415; 80048; 80053; 80305-QW; 81003; 82962; 83605; 83735; 84443; 84484; 85025; 85651; 86140; A9270-GY; J3490; J7030

== ENCOUNTER 2018-09-04 21:37 | Emergency (ER) | payer BC ==
--- NOTE | 2018-09-04 21:59 | EDM.PDOC ---
ED HPI GENERAL MEDICAL PROBLEM - General Chief Complaint: General Stated Complaint: HEART FLUTTERING Time Seen by Provider: 09/04/18 21:48 Source of Information: Reports: Patient, Family History Limitations: Reports: No Limitations - History of Present Illness INITIAL COMMENTS - FREE TEXT/NARRATIVE: Noted fluttering chest after moving furniture. Was hospitalized 1 week ago for low blood pressure with significant adjustments (Mostly cessation) of BP meds and decrease in thyroid medication (Thyroxine) of some type and has completely quit the thyroid medication as not feeling well after the adjustment. was treated with "Augmentin" for a sinus infection which resulted in yeast infection and diarrhea with early cessation of the complete course due to resulting side affects. 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 Onset: Today Onset Date: 09/04/18 Onset Time: 19:00 Duration: Hour(s):, Constant Location: Reports: Chest Quality: Reports: Pressure Severity: Moderate Improves with: Reports: None Worsens with: Reports: None Context: Reports: Activity Associated Symptoms: Reports: Cough - Related Data Allergies Allergy/AdvReac Type Severity Reaction Status Date / Time ceftriaxone sodium Allergy Shortness Verified 09/04/18 22:04 [From Rocephin] of Breath codeine Allergy Stomach Verified 09/04/18 22:04 Upset erythromycin base Allergy Stomach Verified 09/04/18 22:04 Upset hydromorphone [From Dilaudid] Allergy Agitation Verified 09/04/18 22:04 Home Meds: Home Meds Aspirin 325 mg PO DAILY 03/09/14 [History] Budesonide [Entocort EC] 6 mg PO DAILY PRN 04/02/18 [History] Rosuvastatin Calcium [Crestor] 40 mg PO DAILY 04/02/18 [History] Ticagrelor [Brilinta] 90 mg PO BID 04/02/18 [History] Venlafaxine HCl [Venlafaxine ER] 37.5 mg PO DAILY 04/02/18 [History] Venlafaxine HCl [Venlafaxine ER] 150 mg PO DAILY 04/02/18 [History] Albuterol [Proventil Neb Soln] 2.5 mg INH QID PRN 08/18/18 [History] Fluocinonide/Emollient [Lidex-E 0.05% Crm] 1 applic TOP ASDIRECTED 08/18/18 [ History] Gabapentin [Neurontin] 300 mg PO BID 08/19/18 [History] Levothyroxine 112 mcg PO ACBREAKFAST #60 tablet 08/20/18 [Rx] Liraglutide [Victoza] 0.6 mg SQ DAILY #3 08/20/18 [Rx] Magnesium Oxide 500 mg PO DAILY tablet 08/20/18 [Rx] Metoprolol Tartrate [Lopressor] 25 mg PO BID #60 tablet 08/20/18 [Rx] Nitroglycerin [Nitrostat] 0.4 mg SL ASDIRECTED PRN #30 tab.subl 08/20/18 [Rx] metFORMIN HCl [Metformin HCl ER] 1,000 mg PO BID #120 08/20/18 [Rx] Past Medical History HEENT History: Reports: Impaired Vision Cardiovascular History: Reports: Bypass, Hypertension, MS, Stents Other Cardiovascular History: 2006 bypass Respiratory History: Reports: Sleep Apnea Gastrointestinal History: Reports: Other (See Below) Other Gastrointestinal History: collagenous colitis [employer] History: Reports: Musculoskeletal History: Reports: Other (See Below) Other Musculoskeletal History: knee, low back pain Psychiatric History: Reports: Anxiety, Depression Endocrine/Metabolic History: Reports: Hypothyroidism Dermatologic History: Reports: Psoriasis - Past Surgical History GI Surgical History: Reports: Cholecystectomy Female Surgical History: Reports: Hysterectomy Social & Family History - Family History Family Medical History: Noncontributory - Tobacco Use Smoking Status *Q: Current Every Day Smoker Years of Tobacco use: 20 Packs/Tins Daily: 1 - Caffeine Use Caffeine Use: Reports: Soda - Alcohol Use Alcohol Use History: Yes Number of Drinks Per Day: 0 Alcohol Use in Last Twelve Months: Yes Alcohol Use Frequency: Rarely - Recreational Drug Use Recreational Drug Use: No Drug Use in Last 12 Months: No ED ROS GENERAL - Review of Systems Review Of Systems: See Below Constitutional: Reports: Weakness HEENT: Reports: Sinus Problem Respiratory: Reports: Wheezing, Cough Cardiovascular: Reports: Palpitations Endocrine: Reports: Fatigue (recent self cessation of medication) GI/Abdominal: Reports: Diarrhea (likely chronic bowel issues and augmentin) : Reports: Discharge (secondary augmentin therapy) Musculoskeletal: Reports: No Symptoms Skin: Reports: No Symptoms Neurological: Reports: No Symptoms Psychiatric: Reports: No Symptoms Hematologic/Lymphatic: Reports: No Symptoms Immunologic: Reports: No Symptoms ED EXAM, GENERAL - Physical Exam Exam: See Below General Appearance: Alert, WD/WN, No Apparent Distress Ears: Normal External Exam, Normal Canal (psoriasis rt canal), Normal TMs Nose: Normal Inspection, Normal Mucosa, No Blood Throat/Mouth: Normal Inspection, Normal Lips, Normal Gums, Normal Oropharynx, Normal Voice, No Airway Compromise Head: Atraumatic, Normocephalic Neck: Normal Inspection, Supple, Non-Tender, Full Range of Motion Respiratory/Chest: No Respiratory Distress, Normal Breath Sounds, Wheezing ( smoking) Cardiovascular: Normal Peripheral Pulses, Regular Rate, Rhythm, No Murmur, No Rub, Other (sternotomy scar) GI/Abdominal: Normal Bowel Sounds, Soft, Non-Tender (Female) Exam: Deferred Rectal (Female) Exam: Deferred Back Exam: Normal Inspection, Full Range of Motion, NT Extremities: Normal Inspection, Normal Range of Motion, Non-Tender, Normal Capillary Refill, No Pedal Edema Neurological: Alert, Oriented, CN II-XII Intact, Normal Cognition, Normal Gait, Normal Reflexes, No Motor/Sensory Deficits Psychiatric: Normal Affect, Normal Mood Skin Exam: Warm (sternotomy scar), Dry, Intact, Normal Color, No Rash EKG INTERPRETATION EKG Date: 09/04/18 Time: 22:01 Rhythm: NSR QT: Prolonged Comparison: NA - No Prior EKG Course - Vital Signs Last Recorded V/S: Last Vital Signs Temp 36.2 C 09/04/18 21:54 Pulse 96 09/04/18 22:14 Resp 16 09/04/18 22:14 BP 106/69 09/04/18 22:14 Pulse Ox 98 09/04/18 21:54 - Orders/Labs/Meds Orders: Active Orders 24 hr Category Date Time Status EKG Documentation Completion [RC] ASDIRECTED Care 09/04/18 22:00 Active CXR [Chest 2V] [CR] Stat Exams 09/04/18 22:00 Taken EKG 12 Lead [EK] Routine Ther 09/04/18 21:59 Ordered Labs: Laboratory Tests 09/04/18 09/04/18 Range/Units 22:10 22:10 WBC 7.21 (5.00-10.00) 10^3/uL RBC 4.75 (3.80-5.50) 10^6/uL Hgb 14.2 D (12.0-16.0) g/dL Hct 39.6 (37.0-47.0) % MCV 83.4 (82.0-92.0) fL MCH 29.9 (27.0-31.0) pg MCHC 35.9 (32.0-36.0) g/dL RDW 14.4 (11.5-14.5) % Plt Count 313 (150-400) 10^3/uL MPV 9.1 (7.4-10.4) fL Immature Gran % (Auto) 0.1 (0.0-5.0) % Neut % (Auto) 36.9 L (50.0-70.0) % Lymph % (Auto) 43.6 H (20.0-40.0) % Payette % (Auto) 11.8 H (2.0-8.0) % Eos % (Auto) 6.9 H (1.0-3.0) % Baso % (Auto) 0.7 (0.0-1.0) % Immature Gran # (Auto) 0.01 (0.00-0.50) 10^3/uL Neut # (Auto) 2.66 (2.50-7.00) 10^3/uL Lymph # (Auto) 3.14 (1.00-4.00) 10^3/uL [place]ette # (Auto) 0.85 H (0.10-0.80) 10^3/uL Eos # (Auto) 0.50 H (0.10-0.30) 10^3/uL Baso # (Auto) 0.05 (0.00-0.10) 10^3/uL Sodium 140 (136-145) mmol/L Potassium 3.7 (3.3-5.3) mmol/L Chloride 104 (98-115) mmol/L Carbon Dioxide 26.3 (21.0-32.0) mmol/L Anion Gap 13.4 (5-15) mmol/L BUN 4 L (6-25) mg/dL Creatinine 0.62 (0.51-1.17) mg/dL Est Cr Clr Drug Dosing 98.95 mL/min Estimated GFR (MDRD) > 60 mL/min Glucose 116 H (75 - 99) mg/dL Calcium 9.1 (8.7-10.3) mg/dL Total Bilirubin 0.5 (0.2-1.0) mg/dL AST 33 (15-37) U/L ALT 18 (12-78) U/L Alkaline Phosphatase 81 (46-116) IU/L Creatine Kinase 68 (26-276) U/L CK-MB (CK-2) 1.50 (0.00-4.30) ng/mL Troponin I 0.05 (0.00-0.070) ng/mL C-Reactive Protein < 0.2 (0.0-0.9) mg/dL Total Protein 6.7 (6.4-8.2) g/dL Albumin 3.17 (3.00-4.80) g/dL Departure - Departure Time of Disposition: 23:20 Disposition: Home, Self-Care 01 Condition: Good Clinical Impression: Diarrhea, Heart palpitations - Discharge Information *PRESCRIPTION DRUG MONITORING PROGRAM REVIEWED*: Not Applicable *COPY OF PRESCRIPTION DRUG MONITORING REPORT IN PATIENT LUI: Not Applicable Instructions: Palpitations, [id number] Referrals: Shavon Trent DRAGGER OUT [Primary Care Provider] - Forms: ED Department Discharge Additional Instructions: Discussion on smoking cessation for health improvement. Discussion on the need to restart thyroid medication and consistently take at same time daily for accurate repeat of testing. There will be no validity in testing now as you have been off mediation too long. Discussion of regular schedule as possible, even though rotating shifts, attempt to maintain balanced lifestyle - Problem List & Annotations (1) Heart palpitations SNOMED Code(s): 15729576 Code(s): R00.2 - PALPITATIONS Status: Acute Priority: High Current Visit: Yes (2) Diarrhea SNOMED Code(s): 15717247 Code(s): R19.7 - DIARRHEA, UNSPECIFIED Status: Chronic Priority: Medium Current Visit: Yes Annotation/Comment:: secondary of prior Augmentin use. (3) Hypothyroidism SNOMED Code(s): 16032367 Code(s): E03.9 - HYPOTHYROIDISM, UNSPECIFIED Status: Chronic Priority: High Current Visit: No Annotation/Comment:: Self cessation of thyroid medication after hospital discharge. (4) Smoking SNOMED Code(s): 85222554 Code(s): F17.200 - NICOTINE DEPENDENCE, UNSPECIFIED, UNCOMPLICATED Status: Chronic Priority: Medium Current Visit: Yes Annotation/Comment:: age 14 wtih cessation 3 or 4 times in life span. 1/2 pack or slighlty over now. - Problem List Review Problem List Initiated/Reviewed/Updated: Yes - My Orders Last 24 Hours: My Active Orders 09/04/18 21:59 EKG 12 Lead [EK] Routine 09/04/18 22:00 EKG Documentation Completion [RC] ASDIRECTED CXR [Chest 2V] [CR] Stat - Assessment/Plan Last 24 Hours: My Active Orders 09/04/18 21:59 EKG 12 Lead [EK] Routine 09/04/18 22:00 EKG Documentation Completion [RC] ASDIRECTED CXR [Chest 2V] [CR] Stat Plan: Discussion on smoking cessation for health improvement. Discussion on the need to restart thyroid medication and consistently take at same time daily for accurate repeat of testing. There will be no validity in testing now as you have been off mediation too long. Discussion of regular schedule as possible, even though rotating shifts, attempt to maintain balanced lifestyle.
[2018-09-04 22:21] VITALS: BP 106/69
[2018-09-04 23:06] LABS: ANION GAP 13.4 mmol/L (5-15); CHLORIDE,CL 104 mmol/L (98-115); SODIUM,NA 140 mmol/L (136-145)
== END 2018-09-04 23:28 | disposition home or self-care (01) ==
LOC: KA.ED 21:37
DX: R00.2 Palpitations (principal); R19.7 Diarrhea, unspecified; I10 Essential (primary) hypertension; Z95.5 Presence of coronary angioplasty implant and graft; I25.2 Old myocardial infarction; F41.9 Anxiety disorder, unspecified; F32.9 Major depressive disorder, single episode, unspecified; E03.9 Hypothyroidism, unspecified; F17.210 Nicotine dependence, cigarettes, uncomplicated; Z88.8 Allergy status to other drugs, medicaments and biological substances; Z88.5 Allergy status to narcotic agent; Z79.899 Other long term (current) drug therapy; Z79.82 Long term (current) use of aspirin
CPT/HCPCS: 71046; 80053; 82550; 82553; 82962; 84484; 85025; 86140; 93005; 99285-25

== ENCOUNTER 2020-10-07 14:28 | Emergency (ER) | payer BC ==
--- NOTE | 2020-10-07 14:31 | EDM.PDOC ---
ED HPI GENERAL MEDICAL PROBLEM - General Chief Complaint: Gastrointestinal Problem Stated Complaint: HYPOTENSIVE Time Seen by Provider: 10/07/20 14:30 Source of Information: Reports: Patient, EMS, EMS Notes Reviewed, Provider History Limitations: Reports: No Limitations - History of Present Illness INITIAL COMMENTS - FREE TEXT/NARRATIVE: Kathryn, 45-year-old female, presents today via ambulance from the [facility] secondary of worsening general malaise. At the clinic, severe hypotension and tachycardia were noted. She had presented for evaluation after several weeks of worsening diarrhea, up to 10 loose stools upon awakening in the morning. She has known autoimmune with gastro involvement as well as cardiac risks none. She has not had laboratory work-up since July, she had a change to spironolactone which was maintaining potassium levels on her recheck. She speaks of severe body aches, backache, shoulder aches bilateral, denying any fevers. General malaise has accompanied all of this to which she is worsened. States that once she "empties out" in the morning, she is able to function limiting her intake until she is back home and the safety of her own bathroom availability. She states that [facility] has requested her to return for stool and breath testing. hips, shoulder, back Pain Score (Numeric/FACES): 6 - Related Data Allergies Allergy/AdvReac Type Severity Reaction Status Date / Time ceftriaxone sodium Allergy Shortness Verified 10/07/20 14:51 [From Rocephin] of Breath codeine Allergy Stomach Verified 10/07/20 14:51 Upset erythromycin base Allergy Stomach Verified 10/07/20 14:51 Upset hydromorphone [From Dilaudid] Allergy Agitation Verified 10/07/20 14:51 psyllium [From Metamucil] Allergy Anaphylactic Verified 10/07/20 14:51 Shock Home Meds: Home Meds Budesonide [Entocort EC] 9 mg PO DAILY PRN 04/02/18 [History] Rosuvastatin Calcium [Crestor] 40 mg PO DAILY 04/02/18 [History] Ticagrelor [Brilinta] 90 mg PO BID 04/02/18 [History] Magnesium Oxide 500 mg PO DAILY tablet 08/20/18 [Rx] Nitroglycerin [Nitrostat] 0.4 mg SL ASDIRECTED PRN #30 tab.subl 08/20/18 [Rx] Acetaminophen [Tylenol] 650 mg PO Q4H PRN 10/07/20 [History] Aspirin [Aspirin EC] 81 mg PO DAILY 10/07/20 [History] Cholecalciferol (Vitamin D3) [Vitamin D3] 1,000 unit PO DAILY 10/07/20 [History] EPINEPHrine [Epinephrine] 0.3 mg IM ASDIRECTED PRN 10/07/20 [History] Isosorbide Mononitrate [Isosorbide Mononitrate ER] 15 mg PO 0800 10/07/20 [History] Levothyroxine 125 mcg PO ACBREAKFAST 10/07/20 [History] Melatonin 9 mg PO BEDTIME 10/07/20 [History] Mirtazapine 15 mg PO BEDTIME 10/07/20 [History] Spironolactone [Aldactone] 25 mg PO 0800 10/07/20 [History] Ustekinumab [Stelara] 90 mg SQ ASDIRECTED 10/07/20 [History] metFORMIN HCl [Metformin HCl ER] 1,000 mg PO DAILY 10/07/20 [History] Past Medical History HEENT History: Reports: Impaired Vision Cardiovascular History: Reports: Bypass, Hypertension, RI, Stents Other Cardiovascular History: 2006 bypass Respiratory History: Reports: Sleep Apnea Gastrointestinal History: Reports: Other (See Below) Other Gastrointestinal History: collagenous colitis 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: Musculoskeletal History: Reports: Other (See Below) Other Musculoskeletal History: knee, low back pain Psychiatric History: Reports: Anxiety, Depression Endocrine/Metabolic History: Reports: Hypothyroidism Dermatologic History: Reports: Psoriasis - Past Surgical History Cardiovascular Surgical History: Reports: Coronary Artery Bypass, Coronary Artery Stent GI Surgical History: Reports: Cholecystectomy Female Surgical History: Reports: Hysterectomy - Past Imaging History Past Imaging History: Reports: CAT Scan, Xray Social & Family History - Family History Family Medical History: No Pertinent Family History - Tobacco Use Tobacco Use Status *Q: Current Some Day Tobacco User Tobacco Use Within Last Twelve Months: Cigarettes - Caffeine Use Caffeine Use: Reports: Soda ED ROS GENERAL - Review of Systems Review Of Systems: Comprehensive ROS is negative, except as noted in HPI. ED EXAM, GENERAL - Physical Exam Exam: See Below Free Text/Narrative:: Alert, oriented, with general malaise as well as generalized body aches she states is secondary of her Stelara. She is somewhat ashen pale in color with pulses present and per ambulance staff and maintenance of way supervisor states color is improved slightly since they first initiated transport. HEENT is negative discharge or deformity. PERRLA no icterus no injection Moist mucous membranes Neck soft supple no lymphadenopathy no JVD nor bruit auscultated. Thorax is clear throughout I do not appreciate any wheezes or crackles. Cardiac is tachycardic with no appreciated murmur. Abdomen has hyperactive bowel sounds with no specific tenderness General aches to the abdomen that she states is from her chronic condition. rectal is deferred. Distal extremities are cool to touch but she states she always has cool feet with palpable dorsalis pedis. There is negative tenderness to the calves, negative Homans' sign. rectal is deferred. IV fluid, 1 L infused at the time blood was drawn second liter initiated with noted improvement of heart rate as well as blood pressures while IV fluid infusing. It is noted that while changing bags as the first was exhausting upon arrival heart rate went back up and intermittent blood pressure reading was slightly lower. #1 Interpretation EKG Date: 10/07/20 Time: 14:57 Rhythm: Other (Poor conductivity, unable to determine P waves, versus junctional acceleration.) QRS: Normal ST-T: Normal QT: Normal (not able to compare [facility] chart, non-compliant to review.) Comparison: Change From Previous EKG (not able to see recent EKG as [facility] chart non-compliant to review. -16 Jun 2020) Course - Vital Signs Last Recorded V/S: Last Vital Signs Temp 98.4 F 10/07/20 14:30 Pulse 109 H 10/07/20 16:45 Resp 16 10/07/20 16:45 BP 98/63 10/07/20 16:45 Pulse Ox 97 10/07/20 16:45 Orthostatic Blood Pressure [ 109/78 Standing] Orthostatic Blood Pressure [ 114/76 Sitting] Orthostatic Blood Pressure [ 110/76 Supine] - Orders/Labs/Meds Orders: Active Orders 24 hr Category Date Time Status EKG Documentation Completion [RC] ASDIRECTED Care 10/07/20 14:36 Active Orthostatic Vital Signs [RC] ASDIRECTED Care 10/07/20 16:18 Active Sodium Chloride 0.9% @ 999 MLS/HR (1000ml) Med 10/07/20 16:51 Ordered Sodium Chloride 0.9% [Normal Saline] 1,000 ml IV .BOLUS EKG 12 Lead [EK] Urgent Ther 10/07/20 14:36 Ordered Medication Orders Sodium Chloride (Normal Saline) 1,000 mls @ 999 mls/hr IV .BOLUS ONE Stop: 10/07/20 17:51 Last Admin: 10/07/20 16:58 Dose: 999 mls/hr Documented by: Labs: Laboratory Tests 10/07/20 10/07/20 10/07/20 Range/Units 14:54 14:54 14:54 WBC 8.51 (5.00-10.00) 10^3/uL RBC 4.97 (3.80-5.50) 10^6/uL Hgb 14.5 (12.0-16.0) g/dL Hct 41.0 (37.0-47.0) % MCV 82.5 (82.0-92.0) fL MCH 29.2 (27.0-31.0) pg MCHC 35.4 (32.0-36.0) g/dL RDW 13.0 (11.5-14.5) % Plt Count 245 (150-400) 10^3/uL MPV 9.4 (7.4-10.4) fL Immature Gran % (Auto) 0.0 (0.0-5.0) % Neut % (Auto) 48.2 L (50.0-70.0) % Lymph % (Auto) 35.4 (20.0-40.0) % Banks % (Auto) 13.0 H (2.0-8.0) % Eos % (Auto) 2.8 (1.0-3.0) % Baso % (Auto) 0.6 (0.0-1.0) % Neut # (Auto) 4.10 (2.50-7.00) 10^3/uL Lymph # (Auto) 3.01 (1.00-4.00) 10^3/uL Banks # (Auto) 1.11 H (0.10-0.80) 10^3/uL Eos # (Auto) 0.24 (0.10-0.30) 10^3/uL Baso # (Auto) 0.05 (0.00-0.10) 10^3/uL Immature Gran # (Auto) 0.00 (0.00-0.50) 10^3/uL Sodium 138 (136-145) mmol/L Potassium 3.8 (3.5-5.1) mmol/L Chloride 103 (98-107) mmol/L Carbon Dioxide 24.1 (21.0-32.0) mmol/L Anion Gap 14.7 (5-15) mmol/L BUN 5 L (7-18) mg/dL Creatinine 0.77 (0.51-1.17) mg/dL Est Cr Clr Drug Dosing 81.27 mL/min Estimated GFR (MDRD) > 60 mL/min Glucose 71 (70-140) mg/dL Lactic Acid 1.3 (0.4-2.0) mmol/L Calcium 8.1 L (8.7-10.3) mg/dL Magnesium 1.3 L (1.8-2.4) mg/dL Total Bilirubin 0.9 (0.2-1.0) mg/dL AST 26 (15-37) U/L ALT 20 (14-63) U/L Alkaline Phosphatase 91 (46-116) U/L Troponin I High Sens 7.500 (0-51.000) pg/mL B-Natriuretic Peptide < 5 (0-100) pg/mL Total Protein 6.4 (6.4-8.2) g/dL Albumin 2.99 L (3.40-5.00) g/dL Meds: Medications Generic Name Dose Route Start Last Admin Trade Name Freq PRN Reason Stop Dose Admin Sodium Chloride 1,000 mls @ 999 mls/hr 10/07/20 16:51 10/07/20 16:58 Normal Saline IV 10/07/20 17:51 999 mls/hr .BOLUS ONE Administration Discontinued Medications Generic Name Dose Route Start Last Admin Trade Name Freq PRN Reason Stop Dose Admin Sodium Chloride 1,000 mls @ 999 mls/hr 10/07/20 14:35 10/07/20 16:44 Normal Saline IV 10/07/20 15:35 Not Given .BOLUS ONE - Re-Assessments/Exams Free Text/Narrative Re-Assessment/Exam: Orthostatic vitals completed showing tachycardic response but maintaining blood pressure in the 109/78: 114/76: 109/78 but heart rate increasing to 125 10/07/20 16:24 10/07/20 16:35 Call [place], discussion to speak with cardiology Dr Bolton 10/07/20 16:[address] Bolton not available, Now paging Dr Rider who is consult alberene stone setter. 10/07/20 16:52 1 call printing press operator now connected me with Dr. Bolton was given the orthostatic vitals as well as laboratory reports. She feels it is not cardiac involvement to which I agree and does not wish for any adjustment in medication. She recommends additional fluid at this time and then consideration for follow-up with [facility] where she is been advised to requested to present for ongoing testing. Free Text/Narrative Re-Assessment/Exam: 10/07/20 17:45 Feeling much better at the time of discharge. She is able to sit up put on her shoes and ambulate with only stiffness discomfort. She denies any dizziness lightheadedness or other symptoms of her dehydration tachycardia. Her heart rate came down to 100-102 after the additional 500 mL of fluid. She is requesting discharge at this time and will follow up by contacting [facility] tomorrow and with Gay Trent in the clinic if not able to get into mail in the next 7 to 10 days. Departure - Departure Time of Disposition: 17:36 Disposition: Home, Self-Care 01 Condition: Fair Clinical Impression: Diarrhea, Crohn's disease, Dehydration, Tachycardia, Hypotension - Discharge Information *PRESCRIPTION DRUG MONITORING PROGRAM REVIEWED*: Not Applicable *COPY OF PRESCRIPTION DRUG MONITORING REPORT IN PATIENT LUI: Not Applicable Instructions: Dehydration, Adult, [id number], Crohn's Disease Referrals: Gay Trent TITLE VEHICLE SERVICE ATTENDANT [Primary Care Provider] - Forms: ED Department Discharge Additional Instructions: Go home and rest. Make sure to maintain good fluid intake as you have been d oing. Gatorade or Powerade seems to be working well for you. Increase your magnesium to daily as you are slightly low at this time. You can have this rechecked in the next week or 2 either at your male clinic visit or returning to the [facility] as needed. Continue all your other medications as directed. Schedule your appointment with the [facility] and with rheumatology and [facility] as needed. Consider returning to the emergency department if symptoms should recur or worsen causing concerns for Sepsis Event Note (ED) - Focused Exam Vital Signs: Vital Signs Temp Pulse Resp BP Pulse Ox 05/10/21 16:45 109 H 16 98/63 97 10/07/20 15:51 103 H 13 105/71 95 10/07/20 15:17 109 H 13 99/69 96 10/07/20 15:03 106 H 117/77 20 L 10/07/20 14:30 98.4 F 112 H 24 H 108/77 94 L - Problem List & Annotations (1) Malaise SNOMED Code(s): 750762142 Code(s): R53.81 - OTHER MALAISE Status: Acute Priority: High Current Visit: Yes (2) Hypomagnesemia SNOMED Code(s): 470287845 Code(s): E83.42 - HYPOMAGNESEMIA Status: Chronic Priority: Medium Current Visit: Yes (3) Crohn's disease SNOMED Code(s): 74093534 Code(s): K50.90 - CROHN'S DISEASE, UNSPECIFIED, WITHOUT COMPLICATIONS Status: Chronic Priority: Medium Current Visit: Yes Qualifiers: Gastrointestinal tract location: small intestine Digestive disease complication type: unspecified complication Qualified Code(s): K50.019 - Crohn's disease of small intestine with unspecified complications (4) Generalized body aches SNOMED Code(s): 75395653 Code(s): R52 - PAIN, UNSPECIFIED Status: Chronic Priority: Medium Current Visit: Yes Annotation/Comment:: Stelera induced. Was similar with [employer]. (5) Diarrhea SNOMED Code(s): 88331021 Code(s): R19.7 - DIARRHEA, UNSPECIFIED Status: Chronic Priority: Medium Current Visit: Yes (6) Dehydration SNOMED Code(s): 81807509 Code(s): E86.0 - DEHYDRATION Status: Acute Current Visit: Yes (7) Hypotension SNOMED Code(s): 64824921 Code(s): I95.9 - HYPOTENSION, UNSPECIFIED Status: Acute Priority: High Current Visit: Yes Qualifiers: Hypotension type: hypotension due to hypovolemia Qualified Code(s): I95.89 - Other hypotension; E86.1 - Hypovolemia (8) Tachycardia SNOMED Code(s): 4463533 Code(s): R00.0 - TACHYCARDIA, UNSPECIFIED Status: Acute Priority: High Current Visit: Yes - Problem List Review Problem List Initiated/Reviewed/Updated: Yes - My Orders Last 24 Hours: My Active Orders 10/07/20 14:36 EKG Documentation Completion [RC] ASDIRECTED EKG 12 Lead [EK] Urgent 10/07/20 16:18 Orthostatic Vital Signs [RC] ASDIRECTED 10/07/20 16:51 Sodium Chloride 0.9% @ 999 MLS/HR (1000ml) Sodium Chloride 0.9% [Normal Saline] 1,000 ml IV .BOLUS - Assessment/Plan Last 24 Hours: My Active Orders 10/07/20 14:36 EKG Documentation Completion [RC] ASDIRECTED EKG 12 Lead [EK] Urgent 10/07/20 16:18 Orthostatic Vital Signs [RC] ASDIRECTED 10/07/20 16:51 Sodium Chloride 0.9% @ 999 MLS/HR (1000ml) Sodium Chloride 0.9% [Normal Saline] 1,000 ml IV .BOLUS Plan: Go home and rest. Make sure to maintain good fluid intake as you have been doing. Gatorade or Powerade seems to be working well for you. Increase your magnesium to daily as you are slightly low at this time. You can have this rechecked in the next week or 2 either at your male clinic visit or returning to the [facility] as needed. Continue all your other medications as directed. Schedule your appointment with the [facility] and with rheumatology and [place] clinic as needed. Consider returning to the emergency department if symptoms should recur or worsen causing concerns for you.
[2020-10-07 15:20] LABS: ANION GAP 14.7 mmol/L (5-15); CHLORIDE,CL 103 mmol/L (98-107); SODIUM,NA 138 mmol/L (136-145)
--- NOTE | 2020-10-07 16:16 | CR ---
[id number] RAD/RAD Chest PA or AP 1V EXAM: SINGLE VIEW CHEST. INDICATION: TACHYCARDIA COMPARISON: CORRELATION IS MADE WITH SEPTEMBER 04, 2018 FINDINGS: The lungs are clear The cardiac silhouette is stable Median sternotomy sutures are seen IMPRESSION: NO ACUTE PROCESS Alton Obrien MD 10/07/20 [id number] Thank you for allowing us to participate in the care of your patient.
[2020-10-07] MEDS: Sodium Chloride 0.9% 1,000 ML IV ONE ×2 (16:44→16:58)
[2020-10-07 17:37] VITALS: BP 98/56; PULSE 103
== END 2020-10-07 17:45 | disposition home or self-care (01) ==
LOC: KA.ED 14:28
DX: I95.9 Hypotension, unspecified (principal); K50.90 Crohn's disease, unspecified, without complications; R00.0 Tachycardia, unspecified; R19.7 Diarrhea, unspecified; E86.0 Dehydration; I10 Essential (primary) hypertension; I25.2 Old myocardial infarction; Z95.1 Presence of aortocoronary bypass graft; E03.9 Hypothyroidism, unspecified; Z72.0 Tobacco use; Z79.899 Other long term (current) drug therapy; Z79.02 Long term (current) use of antithrombotics/antiplatelets; Z79.82 Long term (current) use of aspirin; Z88.1 Allergy status to other antibiotic agents; Z88.5 Allergy status to narcotic agent
CPT/HCPCS: 36415; 71045; 80053; 83605; 83735; 83880; 84484; 85025; 93005; 99284; 99285-25; J7030

== ENCOUNTER 2021-04-19 13:01 | Emergency (ER) | payer BC ==
--- NOTE | 2021-04-19 13:38 | EDM.PDOC ---
ED HPI GENERAL MEDICAL PROBLEM - General Chief Complaint: General Stated Complaint: HIGH BLOOD PRESSURE Time Seen by Provider: 04/19/21 13:20 Source of Information: Reports: Patient History Limitations: Reports: No Limitations - History of Present Illness INITIAL COMMENTS - FREE TEXT/NARRATIVE: 46 YO WF PRESENTS TO ER COMPLAINING OF ELEVATED/UNCONTROLLED BLOOD PRESSURE AND EARLIER EPISODE OF CHEST PAIN THIS AM. CURRENT/INITIAL BP-163/98. PT WITH EXTENSIVE CARDIAC HISTORY CABG IN 2006, THEN MULTIPLE EPISODES OF STENT PLACEMENTS IN 2008, 2010 and 2015. PT WAS ADMITTED TO [facility] ON 04/17/2021 FOR CHEST PAIN AFTER EXPERIENCING EPISODIC CHEST PAIN WHILE AT A [employer] WEDNESDAY NIGHT. PT WAS ADMITTED FOR OBSERVATION AND HAD SERIAL TROP WHICH WERE ALL NEGATIVE. PT REPORTS SHE WAS DISCHARGED WITHOUT ANY CHANGE TO HER MEDICATIONS AND LAST NIGHT SHE TOOK 6 NITRO THROUGHOUT THE NIGHT DUE TO ELEVATED BLOOD PRESSURE AND ANGINA. PT IS HERE TODAY FOR MANAGEMENT OF HER BLOOD PRESSURE. PT IS CURRENTLY CHEST PAIN FREE. PT REPORTS SHE HAD GREAT BLOOD PRESSURE UNTIL SHE STARTED HYDROCORTISONE FOR HER ANTONINO DZ. PT HAS TAKEN MULTIPLE BP MEDICATIONS IN THE PAST BUT CURRENTLY ONLY TAKING LISINOPRIL 20MG IN AM. PT DENIES ANY ASSOCIATED SHORTNESS OF BREATH, NO NAUSEA/VOMITING, NO DIAPHORESIS. PT RECENTLY DIAGNOSED WITH BRONCHITIS AND TAKING AUGMENTIN. PT WAS NEGATIVE FOR COVID WHEN TESTED 04/17/2021. Duration: Chronic, Getting Worse Location: Reports: Chest Quality: Reports: Ache Severity: Mild Improves with: Reports: Medication (NITRO) Worsens with: Reports: None Associated Symptoms: Reports: No Other Symptoms, Chest Pain. Denies: Cough, Fever/Chills, Headaches, Nausea/Vomiting, Shortness of Breath, Syncope, Weakness - Related Data Allergies Allergy/AdvReac Type Severity Reaction Status Date / Time ceftriaxone sodium Allergy Shortness Verified 04/19/21 13:15 [From Rocephin] of Breath hydromorphone [From Dilaudid] Allergy Agitation Verified 04/19/21 13:15 milk Allergy Diarrhea Verified 04/19/21 13:15 psyllium [From Metamucil] Allergy Anaphylactic Verified 04/19/21 13:15 Shock codeine AdvReac Stomach Verified 04/19/21 13:15 Upset erythromycin base AdvReac Stomach Verified 04/19/21 13:15 Upset Home Meds: Home Meds Rosuvastatin Calcium [Crestor] 40 mg PO DAILY 04/02/18 [History] Ticagrelor [Brilinta] 90 mg PO BID 04/02/18 [History] Magnesium Oxide 500 mg PO DAILY tablet 08/20/18 [Rx] Nitroglycerin [Nitrostat] 0.4 mg SL ASDIRECTED PRN #30 tab.subl 08/20/18 [Rx] Acetaminophen [Tylenol] 650 mg PO Q4H PRN 10/07/20 [History] Cholecalciferol (Vitamin D3) [Vitamin D3] 1,000 unit PO DAILY 10/07/20 [History] EPINEPHrine [Epinephrine] 0.3 mg IM ASDIRECTED PRN 10/07/20 [History] Levothyroxine 125 mcg PO ACBREAKFAST 10/07/20 [History] Mirtazapine 15 mg PO BEDTIME 10/07/20 [History] Ustekinumab [Stelara] 90 mg SQ ASDIRECTED 10/07/20 [History] Albuterol [Ventolin HFA] 108 mcg INH ASDIRECTED PRN 04/17/21 [History] Amoxicillin/Clavulanate K [Augmentin 875-125 MG] 1 tab PO BID 04/17/21 [History] Aspirin 325 mg PO DAILY 04/17/21 [History] Betamethasone Valerate 1 applic TOP DAILY PRN 04/17/21 [History] Clobetasol [Clobetasol Propionate 0.05%] 1 applic TOP ASDIRECTED 04/17/21 [History] Fludrocortisone [Florinef] 0.5 mg PO ASDIRECTED 04/17/21 [History] Hydrocortisone 10 mg PO TID 04/17/21 [History] dexAMETHasone [Decadron] 1 ml INJECT ASDIRECTED PRN 04/17/21 [History] guaiFENesin [Guaifenesin ER] 600 mg PO BID 04/17/21 [History] lisinopriL [Lisinopril] 20 mg PO DAILY 04/17/21 [History] metFORMIN HCl [Metformin HCl ER] 1,000 mg PO DAILY 04/17/21 [History] Metoprolol Tartrate 25 mg PO BID #60 tablet 04/19/21 [Rx] Past Medical History HEENT History: Reports: Impaired Vision Cardiovascular History: Reports: Bypass, High Cholesterol, Hypertension, NM, Stents, Other (See Below) 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, Diabetes, Type II, Hypokalemia, Hypothyroidism Hematologic History: Reports: Anticoagulation Therapy Immunologic History: Reports: Immunosuppression Dermatologic History: Reports: Psoriasis - Past Surgical History Cardiovascular Surgical History: Reports: Coronary Artery Bypass, Coronary Artery Stent, Other (See Below) Other Cardiovascular Surgeries/Procedures: inferior vena cava balloon Other Respiratory Surgeries/Procedures: treated for bronchitis at this time GI Surgical History: Reports: Cholecystectomy, Colonoscopy Female Surgical History: Reports: Hysterectomy Endocrine Surgical History: Reports: None Neurological Surgical History: Reports: Laminectomy - Past Imaging History Past Imaging History: Reports: CAT Scan, Xray Social & Family History - Family History Family Medical History: No Pertinent Family History - Tobacco Use Tobacco Use Status *Q: Current Every Day Tobacco User Years of Tobacco use: 20 Packs/Tins Daily: 0.5 - Caffeine Use Caffeine Use: Reports: Soda - Recreational Drug Use Recreational Drug Use: No ED ROS GENERAL - Review of Systems Review Of Systems: See Below Constitutional: Reports: No Symptoms HEENT: Reports: No Symptoms Respiratory: Reports: Cough Cardiovascular: Reports: Chest Pain Endocrine: Reports: No Symptoms GI/Abdominal: Reports: No Symptoms : Reports: No Symptoms Musculoskeletal: Reports: No Symptoms Skin: Reports: No Symptoms Neurological: Reports: No Symptoms Psychiatric: Reports: No Symptoms Hematologic/Lymphatic: Reports: No Symptoms Immunologic: Reports: No Symptoms ED EXAM, GENERAL - Physical Exam Exam: See Below Exam Limited By: No Limitations General Appearance: Alert, WD/WN, No Apparent Distress Head: Atraumatic, Normocephalic Neck: Normal Inspection, Supple, Non-Tender, Full Range of Motion Respiratory/Chest: No Respiratory Distress, Lungs Clear, Normal Breath Sounds, No Accessory Muscle Use, Chest Non-Tender Cardiovascular: Normal Peripheral Pulses, Regular Rate, Rhythm, No Edema, No Gallop, No JVD, No Murmur, No Rub GI/Abdominal: Normal Bowel Sounds, Soft, Non-Tender, No Organomegaly, No Distention, No Abnormal Bruit, No Mass Extremities: Normal Inspection, Normal Range of Motion, Non-Tender, Normal Capillary Refill, No Pedal Edema Neurological: Alert, Oriented, CN II-XII Intact, Normal Cognition, Normal Gait, No Motor/Sensory Deficits Psychiatric: Normal Affect, Normal Mood Skin Exam: Warm, Dry, Intact, Normal Color, No Rash Lymphatic: No Adenopathy #1 Interpretation EKG Date: 04/19/21 Time: 13:29 Rhythm: NSR Rate (Beats/Min): 75 [place]: Normal P-Wave: Present QRS: Normal ST-T: Normal QT: Normal Comparison: No Change Course - Vital Signs Last Recorded V/S: Last Vital Signs Temp 97.3 F 04/19/21 13:11 Pulse 78 04/19/21 14:06 Resp 16 04/19/21 14:06 BP 176/89 H 04/19/21 14:06 Pulse Ox 97 04/19/21 14:06 - Orders/Labs/Meds Orders: Active Orders 24 hr Category Date Time Status Peripheral IV Care [RC] . DIRECTED Care 04/19/21 13:21 Active EKG 12 Lead [EK] Stat Ther 04/19/21 13:19 Ordered Labs: Laboratory Tests 04/19/21 04/19/21 Range/Units 13:35 13:35 WBC 9.79 (5.00-10.00) 10^3/uL RBC 4.55 (3.80-5.50) 10^6/uL Hgb 13.6 (12.0-16.0) g/dL Hct 40.9 (37.0-47.0) % MCV 89.9 D (82.0-92.0) fL MCH 29.9 (27.0-31.0) pg MCHC 33.3 (32.0-36.0) g/dL RDW 14.1 (11.5-14.5) % Plt Count 279 (150-400) 10^3/uL MPV 9.1 (7.4-10.4) fL Immature Gran % (Auto) 0.1 (0.0-5.0) % Neut % (Auto) 54.2 (50.0-70.0) % Lymph % (Auto) 31.8 (20.0-40.0) % [place] % (Auto) 6.8 (2.0-8.0) % Eos % (Auto) 6.3 H (1.0-3.0) % Baso % (Auto) 0.8 (0.0-1.0) % Neut # (Auto) 5.30 (2.50-7.00) 10^3/uL Lymph # (Auto) 3.11 (1.00-4.00) 10^3/uL [place] # (Auto) 0.67 (0.10-0.80) 10^3/uL Eos # (Auto) 0.62 H (0.10-0.30) 10^3/uL Baso # (Auto) 0.08 (0.00-0.10) 10^3/uL Immature Gran # (Auto) 0.01 (0.00-0.50) 10^3/uL Sodium 144 (136-145) mmol/L Potassium 3.8 (3.5-5.1) mmol/L Chloride 106 (98-107) mmol/L Carbon Dioxide 26.2 (21.0-32.0) mmol/L Anion Gap 15.6 H (5-15) mmol/L BUN 17 (7-18) mg/dL Creatinine 0.75 (0.51-1.17) mg/dL Est Cr Clr Drug Dosing 82.54 mL/min Estimated GFR (MDRD) > 60 mL/min Glucose 140 (70-140) mg/dL Calcium 8.9 (8.7-10.3) mg/dL Total Bilirubin 0.3 (0.2-1.0) mg/dL AST 19 (15-37) U/L ALT 33 (14-63) U/L Alkaline Phosphatase 94 (46-116) U/L Troponin I High Sens 33.800 (0-51.000) pg/mL Total Protein 7.3 (6.4-8.2) g/dL Albumin 3.54 (3.40-5.00) g/dL - Radiology Interpretation Free Text/Narrative:: CXR-NAD Departure - Departure Time of Disposition: 14:32 Disposition: Home, Self-Care 01 Condition: Fair Clinical Impression: Angina at rest Hypertension Qualifiers: Hypertension type: unspecified Qualified Code(s): I10 - Essential (primary) hypertension - Discharge Information Prescriptions: Metoprolol Tartrate 25 mg PO BID #60 tablet Instructions: Hypertension, Adult, [id number], Angina Referrals: Mariel Trent, STRETCHER DRIER OPERATOR [Primary Care Provider] - Forms: ED Department Discharge Additional Instructions: 1. DISCUSSED CASE WITH PHYSICIAN OFFICE CLIN ASST PROVIDER- CHAVEZ EISENBERG/DR WILEY JI WHO AGREED WITH PLAN TO START METOPROLOL TARTRATE 25MG BID AND FOLLOW UP IN [facility] ON . ALSO RECOMMENDING CARDIOLOGY FOLLOW UP DUE TO INCREASED EPISODES OF ANGINA OVER THE LAST 2 MONTHS 2. DISCHARGE HOME 3. CONTINUE HOME MEDICATIONS DIRECTED 4. FOLLOW UP WITH MARIEL TRENT 04/21/2021 FOR FURTHER EVALUATION 5. CALL YOUR PALLET STONE POSITIONER FOR FOLLOW UP 6. RETURN TO ER FOR WORSENING BP/CHEST PAIN NEEDED Sepsis Event Note (ED) - Evaluation Sepsis Screening Result: No Definite Risk - Focused Exam Vital Signs: Vital Signs Temp Pulse Resp BP Pulse Ox 04/19/21 14:06 78 16 176/89 H 97 04/19/21 13:11 97.3 F 78 16 163/98 H 99 - My Orders Last 24 Hours: My Active Orders 04/19/21 13:19 EKG 12 Lead [EK] Stat 04/19/21 13:21 Peripheral IV Care [RC] . DIRECTED - Assessment/Plan Last 24 Hours: My Active Orders 04/19/21 13:19 EKG 12 Lead [EK] Stat 04/19/21 13:21 Peripheral IV Care [RC] . DIRECTED Assessment:: 1. ELEVATED BLOOD PRESSURE 2. ANGINA Plan: 1. DISCUSSED CASE WITH PHYSICIAN OFFICE CLIN ASST PROVIDER- CHAVEZ EISENBERG/DR WILEY JI WHO AGREED WITH PLAN TO START METOPROLOL TARTRATE 25MG BID AND FOLLOW UP IN [facility] ON . ALSO RECOMMENDING CARDIOLOGY FOLLOW UP DUE TO INCREASED EPISODES OF ANGINA OVER THE LAST 2 MONTHS 2. DISCHARGE HOME 3. CONTINUE HOME MEDICATIONS DIRECTED 4. FOLLOW UP WITH MARIEL TRENT 04/21/2021 FOR FURTHER EVALUATION 5. CALL YOUR PALLET STONE POSITIONER FOR FOLLOW UP 6. RETURN TO ER FOR WORSENING BP/CHEST PAIN NEEDED
--- NOTE | 2021-04-19 13:51 | CR ---
[id number] RAD/RAD Chest PA And Lateral EXAM: RAD Chest PA And Lateral INDICATION: CHEST PAIN. COMPARISON: March 10, 2021 DISCUSSION/IMPRESSION: Cardiomediastinal silhouette is unchanged in size and contour from the prior examination. Lungs are clear. No pleural effusion or pneumothorax. Pete Rojas MD 04/19/21 [id number] Thank you for allowing us to participate in the care of your patient.
[2021-04-19 14:04] LABS: ANION GAP 15.6 mmol/L (5-15); CHLORIDE,CL 106 mmol/L (98-107); SODIUM,NA 144 mmol/L (136-145)
[2021-04-19 14:34] VITALS: BP 152/85
[2021-04-19] MEDS: Metoprolol Tartrate 25 MG Tab PO ONE (14:40)
[2021-04-19 14:41] VITALS: PULSE 75
== END 2021-04-19 14:50 | disposition home or self-care (01) ==
LOC: KA.ED 13:01
DX: I20.9 Angina pectoris, unspecified (principal); I10 Essential (primary) hypertension; E78.00 Pure hypercholesterolemia, unspecified; I25.2 Old myocardial infarction; M19.90 Unspecified osteoarthritis, unspecified site; E11.9 Type 2 diabetes mellitus without complications; Z72.0 Tobacco use; Z88.1 Allergy status to other antibiotic agents; Z88.5 Allergy status to narcotic agent; Z91.011 Allergy to milk products; Z88.8 Allergy status to other drugs, medicaments and biological substances; Z79.82 Long term (current) use of aspirin; Z79.899 Other long term (current) drug therapy
CPT/HCPCS: 36415; 71046; 80053; 84484; 85025; 93005; 99284-25; A9270-GY